=== PATIENT | female | born 1980 | race Caucasian/White ===

== ENCOUNTER 2021-05-09 15:43 | Inpatient (IN) | payer BC ==
[2021-05-09 17:24] LABS: CORONAVIRUS COVID-19 NAA NEGATIVE (NEGATIVE); INFLUENZA A NAA NEGATIVE (NEGATIVE); INFLUENZA B NAA NEGATIVE (NEGATIVE)
--- NOTE | 2021-05-09 19:27 | EDM.PDOC ---
ED HPI GENERAL MEDICAL PROBLEM - General Chief Complaint: Respiratory Problem Stated Complaint: DIFFICULTY BREATHING Time Seen by Provider: 05/09/21 19:26 - History of Present Illness INITIAL COMMENTS - FREE TEXT/NARRATIVE: History of present illness: The patient had COVID 19 last year. Then mid February she and her daughter had three week respiratory illness and she tested negative ubt daughter tested positive for COVID 19 - she was better a few days before [place] but the day after got sick agaiin. She has had hoarseness and weakness and difficulty breathing since. She had a clinical diagnosis of pneumonia first of April and has been on antibiotics twice. She is getting mroe short of breath and a feeling she is drowning in her secretions gradually over time. Now she is afraid to sleep because she thinks she may not wake up. She also has a fullness in her throat and has been told she has a lesion on her uvula. This former smoker had a scope [place] [facility] [place] and they said there's inflammation of her throat but no lesion was seen. She has used her nebulizer and she is on prednisone 20 mg daily for weeks. Review of systems: As per history of present illness and below otherwise all systems reviewed and negative. Past medical history: As per history of present illness and as reviewed below otherwise noncontributory. Surgical history: As per history of present illness and as reviewed below otherwise noncontributory. Social history: No reported history of drug or alcohol abuse. Family history: As per history of present illness and as reviewed below otherwise noncontributory. Physical exam: Constitutional - well developed, well-nourished and in no acute distress HEENT - uvula as solid yellow plaque looking like little pieces of popcorn surrounding base of uvula. voice is hoarse. Handling secretions well. No sialism nor trismus. normocephalic, no evidence of trauma - external nose and mouth normal - no mass in neck and no JVD - mucosae moist EYES - full EOM, PERRL, no icterus - no evidence of inflammation, injection, or drainage Respiratory - no respiratory distress, equal bilateral expansion, lungs coarse wheezes throughout and prolonged expiratory phase of respiration Cardiovascular - Regular Rhythm with S1 and S2 appreciated and no murmur, gallop or rub. GI - abdomen soft without distension or organomegaly - normal bowel sounds - no guard or rebound Musculoskeletal no gross deformity of long bones or joints - no tenderness, swelling or edema Neurologic - Alert and oriented times four - CN II-XII grossly intact - motor sensory and coordination symmetrically normal Psychiatric - appropriate mood and affect with normal thought content Hematologic - No petechiae or purpura - mucosa appropriate color and sclera not pale - normal nail bed color and refill Integument - no rash or evidence of trauma - normal turgor Diagnostics: Therapeutics: Impression: upper back Pain Score (Numeric/FACES): 6 - Related Data Allergies Allergy/AdvReac Type Severity Reaction Status Date / Time No Known Allergies Allergy Verified 05/09/21 15:47 Past Medical History HEENT History: Reports: Other (See Below) 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: Psychiatric History: Reports: Anxiety Endocrine/Metabolic History: Reports: Hypothyroidism - Infectious Disease History Infectious Disease History: Reports: Chicken Pox Social & Family History - Family History Cardiac: Reports: Hypertension Oncologic: Reports: Colon, Lung, Ovarian, Other (See Below) Other Oncologic Family History: Melanoma - Tobacco Use Tobacco Use Status *Q: Former Tobacco User Used Tobacco, but Quit: Yes Month/Year Tobacco Last Used: Quit 3 years ago - Recreational Drug Use Recreational Drug Use: No ED ROS GENERAL - Review of Systems Review Of Systems: Comprehensive ROS is negative, except as noted in HPI. ED EXAM, GENERAL - Physical Exam Exam: See Below Free Text/Narrative:: My physical exam is in the HPI Course - Vital Signs Last Recorded V/S: Last Vital Signs Temp 36.9 C 05/09/21 15:44 Pulse 101 H 05/09/21 18:07 Resp 19 05/09/21 18:07 BP 175/85 H 05/09/21 18:07 Pulse Ox 95 05/09/21 18:07 - Orders/Labs/Meds Orders: Active Orders 24 hr Category Date Time Status RT Aerosol Therapy [RC] ASDIRECTED Care 05/09/21 19:39 Active Ang Chest [CT] Stat Exams 05/09/21 19:38 Ordered Soft Tissue Neck w Cont [CT] Stat Exams 05/09/21 19:38 Ordered Sodium Chloride 0.9% [Saline Flush] Med 05/09/21 19:37 Active 10 ml FLUSH ASDIRECTED PRN Sodium Chloride 0.9% [Saline Flush] Med 05/09/21 19:37 Active 2.5 ml FLUSH ASDIRECTED PRN Saline Lock Insert [OM.PC] Stat Oth 05/09/21 19:37 Ordered Medication Orders Sodium Chloride (Sodium Chloride 0.9% 10 Ml Syringe) 10 ml FLUSH ASDIRECTED PRN PRN Reason: Keep Vein Open Sodium Chloride (Sodium Chloride 0.9% 2.5 Ml Syringe) 2.5 ml FLUSH ASDIRECTED PRN PRN Reason: Keep Vein Open Labs: Laboratory Tests 05/09/21 05/09/21 05/09/21 Range/Units 16:30 19:45 19:45 WBC 9.87 (4.0-11.0) K/uL RBC 4.66 (4.30-5.90) M/uL Hgb 14.2 (12.0-16.0) g/dL Hct 41.4 (36.0-46.0) % MCV 88.8 (80.0-98.0) fL MCH 30.5 (27.0-32.0) pg MCHC 34.3 (31.0-37.0) g/dL RDW Std Deviation 47.4 (28.0-62.0) fl RDW Coeff of Swathi 15 (11.0-15.0) % Plt Count 385 (150-400) K/uL MPV 9.30 (7.40-12.00) fL Neut % (Auto) 90.3 H (48.0-80.0) % Lymph % (Auto) 6.4 L (16.0-40.0) % Tucker % (Auto) 3.2 (0.0-15.0) % Eos % (Auto) 0.0 (0.0-7.0) % Baso % (Auto) 0.1 (0.0-1.5) % Neut # (Auto) 8.9 H (1.4-5.7) K/uL Lymph # (Auto) 0.6 (0.6-2.4) K/uL Tucker # (Auto) 0.3 (0.0-0.8) K/uL Eos # (Auto) 0.0 (0.0-0.7) K/uL Baso # (Auto) 0.0 (0.0-0.1) K/uL Nucleated RBC % 0.0 /100WBC Nucleated RBCs # 0 K/uL Sodium 136 (136-145) mmol/L Potassium 3.9 (3.5-5.1) mmol/L Chloride 101 (98-107) mmol/L Carbon Dioxide 26.5 (21.0-32.0) mmol/L BUN 5 L (7.0-18.0) mg/dL Creatinine 0.8 (0.6-1.0) mg/dL Est Cr Clr Drug Dosing 75.78 mL/min Estimated GFR (MDRD) > 60.0 ml/min Glucose 124 H (74-106) mg/dL Calcium 8.4 L (8.5-10.1) mg/dL Magnesium 2.0 (1.8-2.4) mg/dL Influenza Type A RNA NEGATIVE (NEGATIVE) Influenza Type B RNA NEGATIVE (NEGATIVE) SARS-CoV-2 RNA (ROSENDO) NEGATIVE (NEGATIVE) Meds: Medications Generic Name Dose Route Start Last Admin Trade Name Freq PRN Reason Stop Dose Admin Sodium Chloride 10 ml 05/09/21 19:37 Sodium Chloride 0.9% 10 Ml Syringe FLUSH ASDIRECTED PRN Keep Vein Open Sodium Chloride 2.5 ml 05/09/21 19:37 Sodium Chloride 0.9% 2.5 Ml Syringe FLUSH ASDIRECTED PRN Keep Vein Open Discontinued Medications Generic Name Dose Route Start Last Admin Trade Name Freoliva PRN Reason Stop Dose Admin Albuterol/Ipratropium 3 ml 05/09/21 19:38 05/09/21 20:09 Albuterol/Ipratropium 3.0-0.5 Mg/3 Ml Neb Soln NEB 05/09/21 19:39 3 ml ONETIME ONE Administration Methylprednisolone Sodium Succinate 125 mg 05/09/21 19:39 05/09/21 20:10 Methylprednisolone Sodium Succinate 125 Mg/2 Ml Sdv IVPUSH 05/09/21 19:40 125 mg ONETIME ONE Administration - Re-Assessments/Exams Free Text/Narrative Re-Assessment/Exam: 05/09/21 20:25 After IM glucagon 45 minutes later patient swallowing glasses of water and not having any problem. Electrolytes are good. Discussed with Dr. Bowen who said he would come and scope him if he could not swallow anything but since he can he will see him tomorrow before noon if the patient will call before 8 AM. Departure - Departure Time of Disposition: 20:26 Disposition: Home, Self-Care 01 Condition: Good Clinical Impression: Esophageal obstruction - Discharge Information Instructions: Esophageal Stricture Referrals: Moise Bowen MD [Physician] - Forms: ED Department Discharge Additional Instructions: Call Dr. Bowen at 8 AM tomorrow. If you have trouble getting through make sure you get through before 820. Tell Dr. Bowen staff that no matter how far out the next available appointment is that he wants to see you before noon tomorrow and they need to work nightly. [facility] - General Surgery Professional Building [address] [place] [address], [address] [place] [address] The following information is given to patients seen in the emergency department who are being discharged to home. This information is to outline your options for follow-up care. We provide all patients seen in our emergency department with a follow-up referral. The need for follow-up, as well as the timing and circumstances, are variable depending upon the specifics of your emergency department visit. If you don't have a primary care physician on staff, we will provide you with a referral. We always advise you to contact your personal physician following an emergency department visit to inform them of the circumstance of the visit and for follow-up with them and/or the need for any referrals to a consulting specialist. The emergency department will also refer you to a specialist when appropriate. This referral assures that you have the opportunity for follow-up care with a specialist. All of these measure are taken in an effort to provide you with optimal care, which includes your follow-up. Under all circumstances we always encourage you to contact your private physician who remains a resource for coordinating your care. When calling for follow-up care, please make the office aware that this follow-up is from your recent emergency room visit. If for any reason you are refused follow-up, please contact the [facility] Emergency Department at and asked to speak to the emergency department charge nurse. Sepsis Event Note (ED) - Evaluation Sepsis Screening Result: No Definite Risk - Focused Exam Vital Signs: Vital Signs Temp Pulse Resp BP Pulse Ox 05/09/21 18:07 101 H 19 175/85 H 95 05/09/21 15:44 36.9 C 107 H 24 H 178/97 H 94 L - My Orders Last 24 Hours: My Active Orders 05/09/21 19:37 Sodium Chloride 0.9% [Saline Flush] 10 ml FLUSH ASDIRECTED PRN Sodium Chloride 0.9% [Saline Flush] 2.5 ml FLUSH ASDIRECTED PRN Saline Lock Insert [OM.PC] Stat 05/09/21 19:38 Ang Chest [CT] Stat Soft Tissue Neck w Cont [CT] Stat 05/09/21 19:39 RT Aerosol Therapy [RC] ASDIRECTED - Assessment/Plan Last 24 Hours: My Active Orders 05/09/21 19:37 Sodium Chloride 0.9% [Saline Flush] 10 ml FLUSH ASDIRECTED PRN Sodium Chloride 0.9% [Saline Flush] 2.5 ml FLUSH ASDIRECTED PRN Saline Lock Insert [OM.PC] Stat 05/09/21 19:38 Ang Chest [CT] Stat Soft Tissue Neck w Cont [CT] Stat 05/09/21 19:39 RT Aerosol Therapy [RC] ASDIRECTED
[2021-05-09] MEDS ORDERED: Sodium Chloride 0.9% 10 ML Syringe FLUSH PRN (19:37)
[2021-05-09] MEDS ORDERED: Sodium Chloride 0.9% 2.5 ML Syringe FLUSH PRN (19:37)
[2021-05-09] MEDS ORDERED: Albuterol/Ipratropium 3.0-0.5 MG/3 ML Neb Soln NEB ONE (19:38)
[2021-05-09] MEDS ORDERED: methylPREDNISolone Sodium Succinate 125 MG/2 ML SDV IVPUSH ONE (19:39)
[2021-05-09 20:08] LABS: BLOOD UREA NITROGEN,BUN 5 mg/dL (7.0-18.0); CARBON DIOXIDE,CO2 26.5 mmol/L (21.0-32.0); CHLORIDE,CL 101 mmol/L (98-107); GLUCOSE RANDOM 124 mg/dL (74-106); POTASSIUM,K 3.9 mmol/L (3.5-5.1); SODIUM,NA 136 mmol/L (136-145)
--- NOTE | 2021-05-09 21:37 | CT ---
INDICATION: Shortness of breath. TECHNIQUE: CT pulmonary angiogram utilizing 50 mL of Isovue-370 intravenous contrast. Coronal and sagittal formats. COMPARISON: None available. FINDINGS: Central airways patent. Diffuse bronchial wall thickening. No focal pulmonary opacity, pneumothorax, or pleural effusion. No pulmonary arterial filling defect identified. Thoracic aorta is patent and normal caliber. No dissection. Normal cardiac size. No pericardial effusion or thoracic lymphadenopathy. The imaged upper abdomen appears unremarkable. No suspicious osseous lesion. IMPRESSION: 1. No evidence of acute PE. 2. Diffuse bronchial wall thickening as may be seen with bronchitis. Dictated by Corona Mcguire MD @ 05/09/2021 9:35:48 PM Please note that all CT scans at this facility use dose modulation, iterative reconstruction, and/or weight-based dosing when appropriate to reduce radiation dose to as low as reasonably achievable. Dictated by: Corona Mcguire MD @ 05/09/2021 21:35:57 (Electronically Signed)
[2021-05-09] MEDS ORDERED: Iopamidol 755 MG/ML 500 ML Multipack Bottle IVPUSH STA (21:46)
--- NOTE | 2021-05-09 21:46 | CT ---
INDICATION: Dyspnea. TECHNIQUE: Soft tissue neck CT with intravenous contrast, 50 mL of Isovue-370. COMPARISON: None available. FINDINGS: The airway is widely patent. Vocal folds appear symmetric. The tonsils, salivary glands, and thyroid appear unremarkable. No cervical lymphadenopathy based on size criteria. The large vessels appear patent. The orbits and paranasal sinuses are unremarkable. The patient is edentulous. No suspicious osseous lesion. IMPRESSION: 1. Unremarkable soft tissue neck CT. 2. Please see separate same day chest CT report. Dictated by Corona Mcguire MD @ 05/09/2021 9:43:40 PM Please note that all CT scans at this facility use dose modulation, iterative reconstruction, and/or weight-based dosing when appropriate to reduce radiation dose to as low as reasonably achievable. Dictated by: Corona Mcguire MD @ 05/09/2021 21:43:43 (Electronically Signed)
[2021-05-09] MEDS ORDERED: Albuterol 0.083% 2.5 MG/3 ML Neb Soln NEB PRN (23:08)
--- NOTE | 2021-05-09 23:08 | PCM.HP.2 ---
H&P History of Present Illness - General Date of Service: 05/09/21 Admit Problem/Dx: Admission Diagnosis/Problem Admission Diagnosis/Problem Dyspnea - History of Present Illness Initial Comments - Free Text/Narative: This is a 40 y/o F with a h/o COPD and a long history of tobacco use who presented to the ED with c/o worsening SOB and wheezing for the past couple of days. She quit smoking a couple of years ago but has recently been vaping. She is normally SOB and uses a nebulizer at home on an as needed basis. She is also on chronic prednisone therapy. She has had two rounds of antibiotics in the past 3 weeks due for acute bronchitis. She recently saw a hospital security officer in [place] and was scheduled for a PFT last wk however she could not do the test because she was wheezing at the time. She has had a hoarse voice for a few years and was seen by an ENT specialist this summer. She was told that the hoarseness could be due to her severe acid reflux. She does take a PPI for that. 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: Psychiatric History: Reports: Anxiety Endocrine/Metabolic History: Reports: Hypothyroidism - Infectious Disease History Infectious Disease History: Reports: Chicken Pox Social & Family History - Family History Cardiac: Reports: Hypertension Oncologic: Reports: Colon, Lung, Ovarian, Other (See Below) Other Oncologic Family History: Melanoma - Tobacco Use Tobacco Use Status *Q: Former Tobacco User Used Tobacco, but Quit: Yes Month/Year Tobacco Last Used: Quit 3 years ago - Recreational Drug Use Recreational Drug Use: No H&P Review of Systems - Review of Systems: Review Of Systems: Comprehensive ROS is negative, except as noted in HPI. Exam - Exam Exam: See Below - Vital Signs Vital Signs: Last Vital Signs Temp 97.5 F 05/09/21 22:58 Pulse 92 05/09/21 22:58 Resp 18 05/09/21 22:58 BP 141/86 H 05/09/21 22:58 Pulse Ox 95 05/09/21 22:58 Weight: 125 lb - Exam Physical Exam Comments:: General: Middle aged female. In no acute distress. HEENT: Pt has some white spots on her uvula. CVS: S1S2 appreciated. RRR lungs: diminished bilaterally. End exp wheezes Pa: soft, non tender. bowel sounds present ext: no clubbing, cyanosis or edema neuro: non focal psych: stable mood and affect . - Patient Data Lab Results Last 24 hrs: Laboratory Results - last 24 hr 05/09/21 05/09/21 05/09/21 Range/Units 16:30 19:45 19:45 WBC 9.87 (4.0-11.0) K/uL RBC 4.66 (4.30-5.90) M/uL Hgb 14.2 (12.0-16.0) g/dL Hct 41.4 (36.0-46.0) % MCV 88.8 (80.0-98.0) fL MCH 30.5 (27.0-32.0) pg MCHC 34.3 (31.0-37.0) g/dL RDW Std Deviation 47.4 (28.0-62.0) fl RDW Coeff of Swathi 15 (11.0-15.0) % Plt Count 385 (150-400) K/uL MPV 9.30 (7.40-12.00) fL Neut % (Auto) 90.3 H (48.0-80.0) % Lymph % (Auto) 6.4 L (16.0-40.0) % Howell % (Auto) 3.2 (0.0-15.0) % Eos % (Auto) 0.0 (0.0-7.0) % Baso % (Auto) 0.1 (0.0-1.5) % Neut # (Auto) 8.9 H (1.4-5.7) K/uL Lymph # (Auto) 0.6 (0.6-2.4) K/uL Howell # (Auto) 0.3 (0.0-0.8) K/uL Eos # (Auto) 0.0 (0.0-0.7) K/uL Baso # (Auto) 0.0 (0.0-0.1) K/uL Nucleated RBC % 0.0 /100WBC Nucleated RBCs # 0 K/uL Sodium 136 (136-145) mmol/L Potassium 3.9 (3.5-5.1) mmol/L Chloride 101 (98-107) mmol/L Carbon Dioxide 26.5 (21.0-32.0) mmol/L BUN 5 L (7.0-18.0) mg/dL Creatinine 0.8 (0.6-1.0) mg/dL Est Cr Clr Drug Dosing 75.78 mL/min Estimated GFR (MDRD) > 60.0 ml/min Glucose 124 H (74-106) mg/dL Calcium 8.4 L (8.5-10.1) mg/dL Magnesium 2.0 (1.8-2.4) mg/dL Influenza Type A RNA NEGATIVE (NEGATIVE) Influenza Type B RNA NEGATIVE (NEGATIVE) SARS-CoV-2 RNA (ROSENDO) NEGATIVE (NEGATIVE) Result Diagrams: 05/09/21 19:45 05/09/21 19:45 Sepsis Event Note - Evaluation Sepsis Screening Result: No Definite Risk - Focused Exam Vital Signs: Vital Signs Temp Pulse Resp BP Pulse Ox 05/09/21 22:58 97.5 F 92 18 141/86 H 95 05/09/21 18:07 101 H 19 175/85 H 95 05/09/21 16:00 95 141/86 H 95 05/09/21 15:44 98.5 F 107 H 24 H 178/97 H 94 L - Problem List (1) COPD exacerbation SNOMED Code(s): 202921266 ICD Code: J44.1 - CHRONIC OBSTRUCTIVE PULMONARY DISEASE W (ACUTE) EXACERBATION Status: Acute Current Visit: Yes (2) GERD (gastroesophageal reflux disease) SNOMED Code(s): 090983625 ICD Code: K21.9 - GASTRO-ESOPHAGEAL REFLUX DISEASE WITHOUT ESOPHAGITIS Status: Acute Current Visit: Yes (3) COPD with acute exacerbation SNOMED Code(s): 841576639 ICD Code: J44.1 - CHRONIC OBSTRUCTIVE PULMONARY DISEASE W (ACUTE) EXACERBATION Status: Acute Current Visit: Yes (4) History of tobacco use SNOMED Code(s): 170924399 ICD Code: Z87.891 - PERSONAL HISTORY OF NICOTINE DEPENDENCE Status: Acute Current Visit: Yes (5) Full code status SNOMED Code(s): 960071656 ICD Code: Z78.9 - OTHER SPECIFIED HEALTH STATUS Status: Acute Current Visit: Yes (6) DVT prophylaxis SNOMED Code(s): 261614209, 472553533 ICD Code: Z29.9 - ENCOUNTER FOR PROPHYLACTIC MEASURES, UNSPECIFIED Status: Acute Current Visit: Yes (7) Hypothyroidism SNOMED Code(s): 91054401 ICD Code: E03.9 - HYPOTHYROIDISM, UNSPECIFIED Status: Acute Current Visit: Yes Problem List Initiated/Reviewed/Updated: Yes Orders Last 24hrs: Active Orders 24 hr Category Date Time Status Admission Status [Patient Status] [ADT] Stat ADT 05/09/21 22:00 Active RT Aerosol Therapy [RC] ASDIRECTED Care 05/09/21 19:39 Active Sodium Chloride 0.9% [Saline Flush] Med 05/09/21 19:37 Active 10 ml FLUSH ASDIRECTED PRN Sodium Chloride 0.9% [Saline Flush] Med 05/09/21 19:37 Active 2.5 ml FLUSH ASDIRECTED PRN Saline Lock Insert [OM.PC] Stat Oth 05/09/21 19:37 Ordered Medication Orders Sodium Chloride (Sodium Chloride 0.9% 10 Ml Syringe) 10 ml FLUSH ASDIRECTED PRN PRN Reason: Keep Vein Open Sodium Chloride (Sodium Chloride 0.9% 2.5 Ml Syringe) 2.5 ml FLUSH ASDIRECTED PRN PRN Reason: Keep Vein Open Assessment/Plan Comment:: COPD exacerbation Admit to the medical floor. Start pt on Duonebs Q4 and Q2hrs prn, IV solumedrol and zithromax h/o tobacco use GERD continue PPI Hypothyroidism On Synthroid. Full code status DVT prophylaxis SCD's - Mortality Measure Prognosis:: Good
[2021-05-10] MEDS: Ibuprofen 400 MG Tab PO PRN ×2 (00:34→06:54)
[2021-05-10] MEDS: Azithromycin 250 MG Tab PO SCH ×2 (00:41→22:25)
[2021-05-10] MEDS: Albuterol/Ipratropium 3.0-0.5 MG/3 ML Neb Soln NEB SCH ×6 (02:03→22:26)
[2021-05-10] MEDS: methylPREDNISolone Sodium Succinate 40 MG/1 ML SDV IVPUSH SCH ×3 (03:59→19:51)
[2021-05-10] MEDS: Enoxaparin 40 MG/0.4 ML Syringe SUBCUT SCH (08:35)
--- NOTE | 2021-05-10 10:22 | PCM.PN ---
- General Info Date of Service: 05/10/21 Subjective Update: Overall she feels better today. Maintaining sats at 94% on room air. She is able to speak in full sentences. Still wheezing. Coughing some. - Patient Data Vitals - Most Recent: Last Vital Signs Temp 97.6 F 05/10/21 06:54 Pulse 87 05/10/21 04:00 Resp 18 05/10/21 04:00 BP 124/74 05/10/21 04:00 Pulse Ox 94 L 05/10/21 04:00 Weight - Most Recent: 298 lb 15.149 oz I&O - Last 24 Hours: Intake & Output 05/09/21 05/10/21 05/10/21 22:59 06:59 14:59 Intake Total 250 Balance 250 Lab Results Last 24 Hours: Laboratory Results - last 24 hr 05/09/21 05/09/21 05/09/21 Range/Units 16:30 19:45 19:45 WBC 9.87 (4.0-11.0) K/uL RBC 4.66 (4.30-5.90) M/uL Hgb 14.2 (12.0-16.0) g/dL Hct 41.4 (36.0-46.0) % MCV 88.8 (80.0-98.0) fL MCH 30.5 (27.0-32.0) pg MCHC 34.3 (31.0-37.0) g/dL RDW Std Deviation 47.4 (28.0-62.0) fl RDW Coeff of Swathi 15 (11.0-15.0) % Plt Count 385 (150-400) K/uL MPV 9.30 (7.40-12.00) fL Neut % (Auto) 90.3 H (48.0-80.0) % Lymph % (Auto) 6.4 L (16.0-40.0) % Routt % (Auto) 3.2 (0.0-15.0) % Eos % (Auto) 0.0 (0.0-7.0) % Baso % (Auto) 0.1 (0.0-1.5) % Neut # (Auto) 8.9 H (1.4-5.7) K/uL Lymph # (Auto) 0.6 (0.6-2.4) K/uL Routt # (Auto) 0.3 (0.0-0.8) K/uL Eos # (Auto) 0.0 (0.0-0.7) K/uL Baso # (Auto) 0.0 (0.0-0.1) K/uL Nucleated RBC % 0.0 /100WBC Nucleated RBCs # 0 K/uL Sodium 136 (136-145) mmol/L Potassium 3.9 (3.5-5.1) mmol/L Chloride 101 (98-107) mmol/L Carbon Dioxide 26.5 (21.0-32.0) mmol/L BUN 5 L (7.0-18.0) mg/dL Creatinine 0.8 (0.6-1.0) mg/dL Est Cr Clr Drug Dosing 75.78 mL/min Estimated GFR (MDRD) > 60.0 ml/min Glucose 124 H (74-106) mg/dL Calcium 8.4 L (8.5-10.1) mg/dL Magnesium 2.0 (1.8-2.4) mg/dL Influenza Type A RNA NEGATIVE (NEGATIVE) Influenza Type B RNA NEGATIVE (NEGATIVE) SARS-CoV-2 RNA (ROSENDO) NEGATIVE (NEGATIVE) Med Orders - Current: Current Medications Albuterol (Albuterol 0.083% 2.5 Mg/3 Ml Neb Soln) 2.5 mg NEB Q2H PRN PRN Reason: Shortness Of Breath/wheezing Albuterol/Ipratropium (Albuterol/Ipratropium 3.0-0.5 Mg/3 Ml Neb Soln) 3 ml NEB Q4HRRT [facility] Last Admin: 05/10/21 09:30 Dose: 3 ml Documented by: Azithromycin (Azithromycin 250 Mg Tab) 500 mg PO Q24H [facility] Last Admin: 05/10/21 00:41 Dose: 500 mg Documented by: Enoxaparin Sodium (Enoxaparin 40 Mg/0.4 Ml Syringe) 40 mg SUBCUT DAILY [facility] Last Admin: 05/10/21 08:35 Dose: 40 mg Documented by: Ibuprofen (Ibuprofen 800 Mg Tab) 800 mg PO Q6H PRN PRN Reason: Pain Levothyroxine Sodium (Levothyroxine 50 Mcg Tab) 50 mcg PO ACBREAKFAST [facility] Methylprednisolone Sodium Succinate (Methylprednisolone Sodium Succinate 40 Mg/1 Ml Sdv) 80 mg IVPUSH Q8H [facility] Last Admin: 05/10/21 03:59 Dose: 80 mg Documented by: Pantoprazole Sodium (Pantoprazole 40 Mg Tab.Cr) 40 mg PO ACBREAKFAST [facility] Sodium Chloride (Sodium Chloride 0.9% 10 Ml Syringe) 10 ml FLUSH ASDIRECTED PRN PRN Reason: Keep Vein Open Sodium Chloride (Sodium Chloride 0.9% 2.5 Ml Syringe) 2.5 ml FLUSH ASDIRECTED PRN PRN Reason: Keep Vein Open Discontinued Medications Albuterol/Ipratropium (Albuterol/Ipratropium 3.0-0.5 Mg/3 Ml Neb Soln) 3 ml NEB ONETIME ONE Stop: 05/09/21 19:39 Last Admin: 05/09/21 20:09 Dose: 3 ml Documented by: Ibuprofen (Ibuprofen 400 Mg Tab) 800 mg PO Q6H PRN PRN Reason: Pain Last Admin: 05/10/21 06:54 Dose: 800 mg Documented by: Iopamidol (Iopamidol 755 Mg/Ml 500 Ml Multipack Bottle) 100 ml IVPUSH ONETIME STA Stop: 05/09/21 21:47 Last Admin: 05/09/21 21:46 Dose: 100 ml Documented by: Methylprednisolone Sodium Succinate (Methylprednisolone Sodium Succinate 125 Mg/2 Ml Sdv) 125 mg IVPUSH ONETIME ONE Stop: 05/09/21 19:40 Last Admin: 05/09/21 20:10 Dose: 125 mg Documented by: - Exam Physical Findings Comments:: General: Middle aged female. In no acute distress. Able to speak in full sentences. HEENT: Pt has some white spots on her uvula. CVS: S1S2 appreciated. RRR lungs: diminished bilaterally. End exp wheezes Pa: soft, non tender. bowel sounds present ext: no clubbing, cyanosis or edema neuro: non focal psych: stable mood and affect . - Patient Data Lab Results Last 24 hrs: Laboratory Results - last 24 hr 05/09/21 05/09/21 05/09/21 Range/Units 16:30 19:45 19:45 WBC 9.87 (4.0-11.0) K/uL RBC 4.66 (4.30-5.90) M/uL Hgb 14.2 (12.0-16.0) g/dL Hct 41.4 (36.0-46.0) % MCV 88.8 (80.0-98.0) fL MCH 30.5 (27.0-32.0) pg MCHC 34.3 (31.0-37.0) g/dL RDW Std Deviation 47.4 (28.0-62.0) fl RDW Coeff of Swathi 15 (11.0-15.0) % Plt Count 385 (150-400) K/uL MPV 9.30 (7.40-12.00) fL Neut % (Auto) 90.3 H (48.0-80.0) % Lymph % (Auto) 6.4 L (16.0-40.0) % Routt % (Auto) 3.2 (0.0-15.0) % Eos % (Auto) 0.0 (0.0-7.0) % Baso % (Auto) 0.1 (0.0-1.5) % Neut # (Auto) 8.9 H (1.4-5.7) K/uL Lymph # (Auto) 0.6 (0.6-2.4) K/uL Routt # (Auto) 0.3 (0.0-0.8) K/uL Eos # (Auto) 0.0 (0.0-0.7) K/uL Baso # (Auto) 0.0 (0.0-0.1) K/uL Nucleated RBC % 0.0 /100WBC Nucleated RBCs # 0 K/uL Sodium 136 (136-145) mmol/L Potassium 3.9 (3.5-5.1) mmol/L Chloride 101 (98-107) mmol/L Carbon Dioxide 26.5 (21.0-32.0) mmol/L BUN 5 L (7.0-18.0) mg/dL Creatinine 0.8 (0.6-1.0) mg/dL Est Cr Clr Drug Dosing 75.78 mL/min Estimated GFR (MDRD) > 60.0 ml/min Glucose 124 H (74-106) mg/dL Calcium 8.4 L (8.5-10.1) mg/dL Magnesium 2.0 (1.8-2.4) mg/dL Influenza Type A RNA NEGATIVE (NEGATIVE) Influenza Type B RNA NEGATIVE (NEGATIVE) SARS-CoV-2 RNA (ROSENDO) NEGATIVE (NEGATIVE) Result Diagrams: 05/09/21 19:45 05/09/21 19:45 Sepsis Event Note - Evaluation Sepsis Screening Result: No Definite Risk - Focused Exam Vital Signs: Vital Signs Temp Temp Pulse Resp BP BP Pulse Ox 05/10/21 06:54 97.6 F 05/10/21 04:00 96.3 F L 87 18 124/74 94 L 05/10/21 01:34 97.6 F 05/10/21 00:34 97.3 F 05/09/21 23:10 97.6 F 77 16 150/77 H 98 05/09/21 23:08 05/09/21 22:58 97.5 F 92 18 141/86 H 95 Pulse Ox 05/10/21 06:54 05/10/21 04:00 05/10/21 01:34 05/10/21 00:34 05/09/21 23:10 05/09/21 23:08 98 05/09/21 22:58 - Problem List & Annotations (1) COPD exacerbation SNOMED Code(s): 898892080 Code(s): J44.1 - CHRONIC OBSTRUCTIVE PULMONARY DISEASE W (ACUTE) EXACERBATION Status: Acute Current Visit: Yes (2) GERD (gastroesophageal reflux disease) SNOMED Code(s): 751220161 Code(s): K21.9 - GASTRO-ESOPHAGEAL REFLUX DISEASE WITHOUT ESOPHAGITIS Status: Acute Current Visit: Yes (3) COPD with acute exacerbation SNOMED Code(s): 605556043 Code(s): J44.1 - CHRONIC OBSTRUCTIVE PULMONARY DISEASE W (ACUTE) EXACERBATION Status: Acute Current Visit: Yes (4) History of tobacco use SNOMED Code(s): 615474132 Code(s): Z87.891 - PERSONAL HISTORY OF NICOTINE DEPENDENCE Status: Acute Current Visit: Yes (5) Full code status SNOMED Code(s): 059175801 Code(s): Z78.9 - OTHER SPECIFIED HEALTH STATUS Status: Acute Current Visit: Yes (6) DVT prophylaxis SNOMED Code(s): 067824784, 230666725 Code(s): Z29.9 - ENCOUNTER FOR PROPHYLACTIC MEASURES, UNSPECIFIED Status: Acute Current Visit: Yes (7) Hypothyroidism SNOMED Code(s): 83007428 Code(s): E03.9 - HYPOTHYROIDISM, UNSPECIFIED Status: Acute Current Visit: Yes - Problem List Review Problem List Initiated/Reviewed/Updated: Yes - My Orders Last 24 Hours: My Active Orders 05/09/21 23:08 Oxygen Therapy [RC] PRN Up to Chair [RC] ASDIRECTED VTE/DVT Education [RC] PER UNIT ROUTINE Vital Signs [RC] Q4H Respiratory Care Assess and Treatment [CONS] Routine Albuterol [Proventil Neb Soln] 2.5 mg NEB Q2H PRN Resuscitation Status Routine 05/09/21 23:10 RT Aerosol Therapy [RC] ASDIRECTED 05/09/21 23:15 Azithromycin [Zithromax] 500 mg PO Q24H 05/10/21 02:00 Albuterol/Ipratropium [DuoNeb 3.0-0.5 MG/3 ML] 3 ml NEB Q4HRRT 05/10/21 04:00 methylPREDNISolone Sod Succ [Solu-MEDROL] 80 mg IVPUSH Q8H 05/10/21 Breakfast Regular Diet [DIET] 05/10/21 09:00 Enoxaparin [Lovenox] 40 mg SUBCUT DAILY 05/10/21 11:00 Levothyroxine [Synthroid] 50 mcg PO ACBREAKFAST 05/10/21 13:00 Ibuprofen [Motrin] 800 mg PO Q6H PRN 05/11/21 07:30 Pantoprazole [ProTONIX] 40 mg PO ACBREAKFAST - Plan Plan:: COPD exacerbation Continue with Duonebs Q4 and Q2hrs prn, IV solumedrol and zithromax Will keep pt through tomorrow. She may be able to go be discharged tomorrow and follow up with her outpt clinic for an ENT referral. h/o tobacco use GERD continue PPI Hypothyroidism On Synthroid. Full code status DVT prophylaxis SCD's
[2021-05-10] MEDS: Levothyroxine 50 MCG Tab PO SCH (12:23)
[2021-05-10] MEDS ORDERED: Docusate Sodium 100 MG Cap PO PRN (14:42)
[2021-05-10] MEDS ORDERED: Calcium Carbonate 500 MG Tab.Chew PO PRN (14:42)
[2021-05-10] MEDS: Ibuprofen 800 MG Tab PO PRN ×2 (16:11→22:24)
[2021-05-11] MEDS: Albuterol/Ipratropium 3.0-0.5 MG/3 ML Neb Soln NEB SCH ×3 (02:09→09:06)
[2021-05-11] MEDS: methylPREDNISolone Sodium Succinate 40 MG/1 ML SDV IVPUSH SCH ×2 (04:03→11:32)
[2021-05-11] MEDS: Levothyroxine 50 MCG Tab PO SCH (06:30)
[2021-05-11] MEDS ORDERED: Pantoprazole 40 MG Tab.CR PO SCH (07:30)
[2021-05-11] MEDS: Enoxaparin 40 MG/0.4 ML Syringe SUBCUT SCH (09:06)
--- NOTE | 2021-05-11 10:03 | PCM.DCSUM1 ---
Discharge Summary - Hospital Course HPI Initial Comments: Sherine Payne is a 41 y/o female with a h/o COPD admitted with an exacerbation. She was treated with parenteral steroids, zithromax and duonebs She improved well enough and felt OK to go home. She was discharged home in a stable condition. Discharge instructions: Activity as tolerated Diet : regular Pt is to follow up with her PCP for an ENT referral later today. Physical exam: General: well developed female. In no distress CVS: S1S2 appreciated. RRR lungs: some end exp wheezes but much improved compared to yesterday pa: soft, non tender . bowel sounds present ext: no clubbing, cyanosis or edema neuro: stable gait. Discharge time was 35 minutes. Diagnosis: Stroke: No - Discharge Data Discharge Date: 05/11/21 Discharge Disposition: Home, Self-Care 01 Condition: Fair - Referral to Home Health Primary Care Physician: Lisandro Green MD - Discharge Diagnosis/Problem(s) (1) COPD exacerbation SNOMED Code(s): 494156689 ICD Code: J44.1 - CHRONIC OBSTRUCTIVE PULMONARY DISEASE W (ACUTE) EXACERBATION Status: Acute Current Visit: Yes (2) GERD (gastroesophageal reflux disease) SNOMED Code(s): 016486080 ICD Code: K21.9 - GASTRO-ESOPHAGEAL REFLUX DISEASE WITHOUT ESOPHAGITIS Status: Acute Current Visit: Yes (3) COPD with acute exacerbation SNOMED Code(s): 260336229 ICD Code: J44.1 - CHRONIC OBSTRUCTIVE PULMONARY DISEASE W (ACUTE) EXACERBATION Status: Acute Current Visit: Yes (4) History of tobacco use SNOMED Code(s): 493013262 ICD Code: Z87.891 - PERSONAL HISTORY OF NICOTINE DEPENDENCE Status: Acute Current Visit: Yes (5) Full code status SNOMED Code(s): 518702451 ICD Code: Z78.9 - OTHER SPECIFIED HEALTH STATUS Status: Acute Current Visit: Yes (6) DVT prophylaxis SNOMED Code(s): 464568509, 202911826 ICD Code: Z29.9 - ENCOUNTER FOR PROPHYLACTIC MEASURES, UNSPECIFIED Status: Acute Current Visit: Yes (7) Hypothyroidism SNOMED Code(s): 00439047 ICD Code: E03.9 - HYPOTHYROIDISM, UNSPECIFIED Status: Acute Current Visit: Yes - Patient Summary/Data Consults: Consultations 05/09/21 23:08 Respiratory Care Assess and Treatment [CONS] Routine - Discharge Plan *PRESCRIPTION DRUG MONITORING PROGRAM REVIEWED*: No *COPY OF PRESCRIPTION DRUG MONITORING REPORT IN PATIENT FLORIAN: No Prescriptions/Med Rec: Fluticasone Propion/Salmeterol [Advair 250-50 Diskus] 1 puff IH BID #30 blst.w.dev Nystatin 5 ml PO QID 14 Days #300 ml predniSONE [Prednisone] 10 mg PO DAILY #22 tab.ds.pk Azithromycin [Zithromax] 500 mg PO Q24H #3 tablet Home Medications: Home Meds Levothyroxine [Synthroid] 50 mcg PO ACBREAKFAST 05/10/21 [History] Pantoprazole 40 mg PO ACBREAKFAST 05/10/21 [History] Albuterol [Proventil Neb Soln] 2.5 mg NEB Q2H PRN neb 05/11/21 [Rx] Albuterol/Ipratropium [DuoNeb 3.0-0.5 MG/3 ML] 3 ml NEB Q4HRRT neb 05/11/21 [Rx] Azithromycin [Zithromax] 500 mg PO Q24H #3 tablet 05/11/21 [Rx] Fluticasone Propion/Salmeterol [Advair 250-50 Diskus] 1 puff IH BID #30 blst.w.dev 05/11/21 [Rx] Nystatin 5 ml PO QID 14 Days #300 ml 05/11/21 [Rx] predniSONE [Prednisone] 10 mg PO DAILY #22 tab.ds.pk 05/11/21 [Rx] Patient Handouts: Chronic Obstructive Pulmonary Disease Exacerbation, [id number], Food Choices for Gastroesophageal Reflux Disease, Adult, [id number], Hypothyroidism, Chronic Obstructive Pulmonary Disease, [id number], Gastroesophageal Reflux Disease, Adult, [id number], COPD and Physical Activity Referrals: Tonya Ceballos NP [Nurse Practitioner] - 05/11/21 10:30 am - Discharge Summary/Plan Comment DC Time >30 min.: Yes Total # of Minutes for Discharge Time: 35 mins - Patient Data Vitals - Most Recent: Last Vital Signs Temp 98.4 F 05/11/21 07:00 Pulse 79 05/11/21 07:00 Resp 16 05/11/21 07:00 BP 160/89 H 05/11/21 07:00 Pulse Ox 98 05/11/21 07:00 Weight - Most Recent: 298 lb 15.149 oz I&O - Last 24 hours: Intake & Output 05/10/21 05/11/21 05/11/21 22:59 06:59 14:59 Intake Total 1800 1000 Balance 1800 1000 Med Orders - Current: Current Medications Albuterol (Albuterol 0.083% 2.5 Mg/3 Ml Neb Soln) 2.5 mg NEB Q2H PRN PRN Reason: Shortness Of Breath/wheezing Last Admin: 05/10/21 16:12 Dose: 2.5 mg Documented by: Albuterol/Ipratropium (Albuterol/Ipratropium 3.0-0.5 Mg/3 Ml Neb Soln) 3 ml NEB Q4HRRT [facility] Last Admin: 05/11/21 09:06 Dose: 3 ml Documented by: Azithromycin (Azithromycin 250 Mg Tab) 500 mg PO Q24H [facility] Last Admin: 05/10/21 22:25 Dose: 500 mg Documented by: Calcium Carbonate/Glycine (Calcium Carbonate 500 Mg Tab.Chew) 1,000 mg PO Q2HR PRN PRN Reason: Indigestion Docusate Sodium (Docusate Sodium 100 Mg Cap) 100 mg PO Q12H PRN PRN Reason: Constipation Last Admin: 05/10/21 16:07 Dose: 100 mg Documented by: Enoxaparin Sodium (Enoxaparin 40 Mg/0.4 Ml Syringe) 40 mg SUBCUT DAILY [facility] Last Admin: 05/11/21 09:06 Dose: 40 mg Documented by: Ibuprofen (Ibuprofen 800 Mg Tab) 800 mg PO Q6H PRN PRN Reason: Pain Last Admin: 05/10/21 22:24 Dose: 800 mg Documented by: Levothyroxine Sodium (Levothyroxine 50 Mcg Tab) 50 mcg PO ACBREAKFAST [facility] Last Admin: 05/11/21 06:30 Dose: 50 mcg Documented by: Methylprednisolone Sodium Succinate (Methylprednisolone Sodium Succinate 40 Mg/1 Ml Sdv) 80 mg IVPUSH Q8H [facility] Last Admin: 05/11/21 04:03 Dose: 80 mg Documented by: Pantoprazole Sodium (Pantoprazole 40 Mg Tab.Cr) 40 mg PO ACBREAKFAST [facility] Last Admin: 05/11/21 06:33 Dose: 40 mg Documented by: Sodium Chloride (Sodium Chloride 0.9% 10 Ml Syringe) 10 ml FLUSH ASDIRECTED PRN PRN Reason: Keep Vein Open Sodium Chloride (Sodium Chloride 0.9% 2.5 Ml Syringe) 2.5 ml FLUSH ASDIRECTED PRN PRN Reason: Keep Vein Open Discontinued Medications Albuterol/Ipratropium (Albuterol/Ipratropium 3.0-0.5 Mg/3 Ml Neb Soln) 3 ml NEB ONETIME ONE Stop: 05/09/21 19:39 Last Admin: 05/09/21 20:09 Dose: 3 ml Documented by: Ibuprofen (Ibuprofen 400 Mg Tab) 800 mg PO Q6H PRN PRN Reason: Pain Last Admin: 05/10/21 06:54 Dose: 800 mg Documented by: Iopamidol (Iopamidol 755 Mg/Ml 500 Ml Multipack Bottle) 100 ml IVPUSH ONETIME STA Stop: 05/09/21 21:47 Last Admin: 05/09/21 21:46 Dose: 100 ml Documented by: Methylprednisolone Sodium Succinate (Methylprednisolone Sodium Succinate 125 Mg/2 Ml Sdv) 125 mg IVPUSH ONETIME ONE Stop: 05/09/21 19:40 Last Admin: 05/09/21 20:10 Dose: 125 mg Documented by:
== END 2021-05-11 11:50 | disposition home or self-care (01) | DRG 140 ==
LOC: MW.ED 15:43 → MW.MS 22:00 → UNDODISIN 05-10 14:30
PROVIDERS: ADMIT Hospitalist; ATTEND Hospitalist
DX: J44.1 Chronic obstructive pulmonary disease with (acute) exacerbation (principal); K21.9 Gastro-esophageal reflux disease without esophagitis; E03.9 Hypothyroidism, unspecified; F41.9 Anxiety disorder, unspecified; J44.9 Chronic obstructive pulmonary disease, unspecified; K22.2 Esophageal obstruction; Z20.822 Contact with and (suspected) exposure to COVID-19; Z87.891 Personal history of nicotine dependence; Z79.890 Hormone replacement therapy; Z79.899 Other long term (current) drug therapy
CPT/HCPCS: 0240U; 36415; 70491; 70491-26; 71275; 71275-26; 80048; 83735; 85025; 94640; 96374; 99285-25; A9270-GY; J1650; J2920; J2930; J7620-GY; Q9967

== ENCOUNTER 2022-05-27 18:01 | Emergency (ER) | payer BC ==
[2022-05-27 19:18] LABS: CORONAVIRUS COVID-19 NAA NEGATIVE (NEGATIVE); INFLUENZA A NAA NEGATIVE (NEGATIVE); INFLUENZA B NAA NEGATIVE (NEGATIVE); RESPIRATORY SYNCYTIAL VIR NAA NEGATIVE (NEGATIVE)
[2022-05-27 19:30] LABS: POTASSIUM,K 3.7 mmol/L (3.5-5.1)
== END 2022-05-27 20:44 | disposition home or self-care (01) ==
LOC: MW.ED 18:01
DX: R53.1 Weakness (principal); I10 Essential (primary) hypertension; J44.9 Chronic obstructive pulmonary disease, unspecified; E03.9 Hypothyroidism, unspecified; Z20.822 Contact with and (suspected) exposure to COVID-19; Z79.899 Other long term (current) drug therapy
CPT/HCPCS: 0241U; 36415; 71045; 80053; 84484; 85025; 99285

== ENCOUNTER 2022-08-24 09:50 | Day surgery (SDC) | payer BC ==
[~2022-08-24 09:50] MED LIST: Lactated Ringers 1,000 ML IV SCH; Propofol 200 MG/20 ML SDV ONE; Sodium Chloride 0.9% 10 ML Syringe FLUSH PRN; Sodium Chloride 0.9% 2.5 ML Syringe FLUSH PRN; Sodium Chloride 0.9% 20 ML SDV IV PRN
== END 2022-08-24 12:10 | disposition home or self-care (01) ==
LOC: MW.SDS 09:50
PROVIDERS: ATTEND Surgery
DX: K21.00 Gastro-esophageal reflux disease with esophagitis, without bleeding (principal); K59.09 Other constipation; K63.89 Other specified diseases of intestine; J38.3 Other diseases of vocal cords; F41.9 Anxiety disorder, unspecified; J44.1 Chronic obstructive pulmonary disease with (acute) exacerbation; F32.A Depression, unspecified; I10 Essential (primary) hypertension; E87.1 Hypo-osmolality and hyponatremia; E03.9 Hypothyroidism, unspecified; K58.9 Irritable bowel syndrome, unspecified; E55.9 Vitamin D deficiency, unspecified; Z86.16 Personal history of COVID-19; Z86.010 Personal history of colon polyps; Z80.0 Family history of malignant neoplasm of digestive organs; Z87.891 Personal history of nicotine dependence
CPT/HCPCS: 43239; 45380; 81025; J2704; J7120; 00813

== ENCOUNTER 2023-05-09 14:56 | Emergency (ER) | payer BC ==
[2023-05-09] MEDS ORDERED: Ondansetron 4 MG/2 ML SDV IVPUSH ONE (15:10)
[2023-05-09] MEDS ORDERED: Metoclopramide 10 MG/2 ML SDV IV ONE (15:10)
[2023-05-09] MEDS ORDERED: diphenhydrAMINE 50 MG/ML SDV IVPUSH ONE (15:10)
[2023-05-09] MEDS ORDERED: Sodium Chloride 0.9% 1,000 ML IV ONE (15:10)
[2023-05-09] MEDS ORDERED: Ketorolac 30 MG/ML SDV IVPUSH ONE (15:11)
[2023-05-09 15:50] LABS: BASOPHILS ABSOLUTE AUTO 0.05 K/uL (0.00-0.20); BASOPHILS PERCENT AUTO 0.9 % (0.0-1.0); EOSINOPHILS ABSOLUTE AUTO 0.04 K/uL (0.00-0.45); EOSINOPHILS PERCENT AUTO 0.7 % (0.0-6.0); HEMATOCRIT 38.6 % (37.0-47.0); HEMOGLOBIN 13.7 g/dL (12.0-16.0); IMMATURE GRAN ABSOLUTE AUTO 0.01 K/uL (0.00-0.05); IMMATURE GRAN PERCENT AUTO 0.2 % (0.0-0.4); LYMPHOCYTES PERCENT AUTO 20.3 % (24.0-44.0); MEAN CORPUSCULAR HEMOGLOBIN 30.2 pg (28.0-32.0); MEAN CORPUSCULAR HGB CONC 35.5 g/dL (32.0-36.0); MEAN CORPUSCULAR VOLUME 85.2 fL (83.0-99.0); MEAN PLATELET VOLUME 9.1 fL (9.4-12.3); MONOCYTES PERCENT AUTO 7.4 % (0.0-8.0); NEUTROPHILS ABSOLUTE AUTO 3.83 K/uL (1.80-7.70); NEUTROPHILS PERCENT AUTO 70.5 % (41.0-71.0); PLATELET COUNT,PLT 361 K/uL (150-400); RED BLOOD CELL COUNT 4.53 M/uL (4.10-5.30); WHITE BLOOD CELL COUNT,WBC 5.43 K/uL (3.9-11.3)
[2023-05-09 16:18] LABS: A/G RATIO 1.3 (0.9-1.6); BILIRUBIN TOTAL 0.3 mg/dL (0.2-1.0); CALCIUM 8.9 mg/dL (8.5-10.1); CARBON DIOXIDE,CO2 24.9 mmol/L (21.0-32.0); CREATININE 0.7 mg/dL (0.6-1.0); EST CRCL DRUG DOSING (CG) 84.84 mL/min; POTASSIUM,K 4.2 mmol/L (3.5-5.1)
== END 2023-05-09 16:54 | disposition home or self-care (01) ==
LOC: MW.ED 14:56
DX: G43.909 Migraine, unspecified, not intractable, without status migrainosus (principal); I10 Essential (primary) hypertension; K21.9 Gastro-esophageal reflux disease without esophagitis; E03.9 Hypothyroidism, unspecified; J44.9 Chronic obstructive pulmonary disease, unspecified; Z79.899 Other long term (current) drug therapy
CPT/HCPCS: 36415; 70450; 80053; 85025; 93005; 96361; 96374; 96375; 99284; J1200; J1885; J2405; J2765; J7030

== ENCOUNTER 2023-10-10 20:55 | Emergency (ER) | payer BC ==
[2023-10-10] MEDS: Sodium Chloride 0.9% 10 ML Syringe FLUSH PRN (21:18)
[2023-10-10] MEDS: Sodium Chloride 0.9% 2.5 ML Syringe FLUSH PRN (21:18)
[2023-10-10 21:20] LABS: BASOPHILS ABSOLUTE AUTO 0.04 K/uL (0.00-0.20); BASOPHILS PERCENT AUTO 0.6 % (0.0-1.0); EOSINOPHILS ABSOLUTE AUTO 0.06 K/uL (0.00-0.45); EOSINOPHILS PERCENT AUTO 0.9 % (0.0-6.0); HEMATOCRIT 40.4 % (37.0-47.0); HEMOGLOBIN 13.9 g/dL (12.0-16.0); IMMATURE GRAN ABSOLUTE AUTO 0.02 K/uL (0.00-0.05); IMMATURE GRAN PERCENT AUTO 0.3 % (0.0-0.4); LYMPHOCYTES ABSOLUTE AUTO 1.81 K/uL (1.00-4.80); LYMPHOCYTES PERCENT AUTO 26.9 % (24.0-44.0); MEAN CORPUSCULAR HEMOGLOBIN 30.5 pg (28.0-32.0); MEAN CORPUSCULAR HGB CONC 34.4 g/dL (32.0-36.0); MEAN CORPUSCULAR VOLUME 88.8 fL (83.0-99.0); MEAN PLATELET VOLUME 9.3 fL (9.4-12.3); MONOCYTES ABSOLUTE AUTO 0.57 K/uL (0.00-0.80); MONOCYTES PERCENT AUTO 8.5 % (0.0-8.0); NEUTROPHILS ABSOLUTE AUTO 4.22 K/uL (1.80-7.70); NEUTROPHILS PERCENT AUTO 62.8 % (41.0-71.0); PLATELET COUNT,PLT 400 K/uL (150-400); RED BLOOD CELL COUNT 4.55 M/uL (4.10-5.30); WHITE BLOOD CELL COUNT,WBC 6.72 K/uL (3.9-11.3)
[2023-10-10 21:56] LABS: A/G RATIO 1.1 (0.9-1.6); ALANINE AMINOTRANSFERASE,ALT 17 IU/L (14-63); ALBUMIN 3.5 g/dL (3.4-5.0); ALKALINE PHOSPHATASE 96 U/L (46-116); ASPARTATE AMNIOTRANSFERASE,AST 13 IU/L (15-37); BILIRUBIN TOTAL 0.3 mg/dL (0.2-1.0); BLOOD UREA NITROGEN,BUN 11 mg/dL (7.0-18.0); CALCIUM 8.2 mg/dL (8.5-10.1); CARBON DIOXIDE,CO2 24.5 mmol/L (21.0-32.0); CHLORIDE,CL 97 mmol/L (98-107); GLUCOSE RANDOM 88 mg/dL (74-106); MAGNESIUM 1.8 mg/dL (1.8-2.4); POTASSIUM,K 3.9 mmol/L (3.5-5.1); PROTEIN TOTAL,TP 6.7 g/dL (6.4-8.2); SODIUM,NA 129 mmol/L (136-145); TSH ULTRASENSITIVE 3.58 uIU/mL (0.36-3.74)
[2023-10-10 21:59] LABS: ESTIMATED GFR 71 mL/min (>60)
== END 2023-10-10 22:31 | disposition home or self-care (01) ==
LOC: MW.ED 20:55
DX: F41.9 Anxiety disorder, unspecified (principal); I10 Essential (primary) hypertension; J44.9 Chronic obstructive pulmonary disease, unspecified; K21.9 Gastro-esophageal reflux disease without esophagitis; E03.9 Hypothyroidism, unspecified; Z79.899 Other long term (current) drug therapy; Z75.8 Other problems related to medical facilities and other health care
CPT/HCPCS: 36415; 71045; 80053; 83735; 84443; 84484; 85025; 99285; J3490; 93010; 99282